=== PATIENT | female | born 1995 | race Caucasian/White ===

== ENCOUNTER 2023-05-11 07:03 | Inpatient (IN) ==
[2023-05-11] MEDS ORDERED: Glycerin ADULT 2.4 gm SUPP PR PRN (07:17)
[2023-05-11] MEDS: Oxytocin in LR 20,000 MILLI.UNIT/1,000 ML BAG IV ONE (07:28)
[2023-05-11 07:39] LABS: Platelet Count 229 10^3/ul (150-450)
[2023-05-11 07:44] LABS: ABS Monocytes 0.6 10^3/uL (0.0-0.9); ABS Neutrophils 11.3 10^3/uL (1.5-7.6); Hematocrit 26.5 % (35-45); Hemoglobin 9.7 g/dL (11.5-14.3); Lymphocyte % 8.1 %; Mean Corpuscular Hemoglobin 34.6 pg (27-33); Mean Corpuscular Hgb Conc 36.7 g/dL (31-36); Mean Corpuscular Volume 94.2 fL (80-97); Mean Platelet Volume 6.7 fL (7.5-11.2); Platelet Count 225 10^3/uL (150-450); Red Blood Count 2.81 10^6/uL (3.63-4.92); Red Cell Distribution Width 13.6 % (12-17); White Blood Count 12.9 10^3/uL (3.8-11.8)
[2023-05-11] MEDS: Oxytocin in LR 20,000 MILLI.UNIT/1,000 ML BAG IV SCH (07:44)
[2023-05-11] MEDS: ceFAZolin 1 GM ADVAN 1 GM in NS 0.9% 50 ML 50 ML IVPB SCH (07:44)
[2023-05-11 07:52] LABS: INR 0.92 (0.83-1.13)
[2023-05-11 07:54] LABS: Activated Partial Thrombo Time 25.6 seconds (26.0-38.0)
[2023-05-11] MEDS ORDERED: Lactated Ringers 1000 ml BAG 1,000 ML IV SCH (08:00)
[2023-05-11 08:11] LABS: Schistocytes ABSENT
[2023-05-11 13:26] LABS: Hematocrit 23.6 % (35-45); Hemoglobin 8.6 g/dL (11.5-14.3); Mean Corpuscular Hemoglobin 34.5 pg (27-33); Mean Corpuscular Hgb Conc 36.5 g/dL (31-36); Mean Corpuscular Volume 94.6 fL (80-97); Mean Platelet Volume 6.7 fL (7.5-11.2); Platelet Count 194 10^3/uL (150-450); Red Blood Count 2.49 10^6/uL (3.63-4.92); Red Cell Distribution Width 13.6 % (12-17); White Blood Count 9.4 10^3/uL (3.8-11.8)
[2023-05-11] MEDS: Iron Sucrose 200 MG in NS 0.9% 100 ml BAG 100 ML IVPB ONE (16:59)
[2023-05-11] MEDS: Witch Hazel PAD JAR TOPICAL PRN (17:07)
[2023-05-11] MEDS: Dibucaine 1% OINT 28.35 GM TUBE PR PRN (17:07)
[2023-05-12 07:33] LABS: ABS Eosinophils 0.1 10^3/uL (0.0-0.5); ABS Lymphocytes 1.4 10^3/uL (1.0-4.8); ABS Monocytes 0.4 10^3/uL (0.0-0.9); ABS Neutrophils 4.1 10^3/uL (1.5-7.6); Eosinophil % 1.8 %; Hematocrit 21.9 % (35-45); Hemoglobin 7.9 g/dL (11.5-14.3); Lymphocyte % 23.6 %; Mean Corpuscular Hemoglobin 35.1 pg (27-33); Mean Corpuscular Hgb Conc 36.1 g/dL (31-36); Mean Corpuscular Volume 97.3 fL (80-97); Mean Platelet Volume 6.6 fL (7.5-11.2); Platelet Count 161 10^3/uL (150-450); Red Blood Count 2.26 10^6/uL (3.63-4.92); Red Cell Distribution Width 13.9 % (12-17); White Blood Count 5.9 10^3/uL (3.8-11.8)
[2023-05-12 18:06] LABS: Hematocrit 26.7 % (35-45); Hemoglobin 9.8 g/dL (11.5-14.3); Mean Corpuscular Hemoglobin 34.8 pg (27-33); Mean Corpuscular Hgb Conc 36.7 g/dL (31-36); Mean Corpuscular Volume 94.8 fL (80-97); Mean Platelet Volume 6.5 fL (7.5-11.2); Platelet Count 191 10^3/uL (150-450); Red Blood Count 2.81 10^6/uL (3.63-4.92); Red Cell Distribution Width 14.7 % (12-17); White Blood Count 7.9 10^3/uL (3.8-11.8)
[2023-05-13] MEDS: Enoxaparin 60 MG/0.6 ML SYR SUBCUT SCH (16:23)
[2023-05-14 14:38] VITALS: BP 97/57
== END 2023-05-14 14:32 | disposition home or self-care (01) | DRG 776 ==
LOC: MCHOB 07:04
PROVIDERS: ADMIT Obstetrics & Gynecology; ATTEND Obstetrics & Gynecology